=== PATIENT | female | born 1990 | race Caucasian/White ===

== ENCOUNTER 2019-04-24 10:55 | Emergency (ER) | payer SELFPAY ==
[~2019-04-24] VITALS: Ht 160 cm; Wt 63.6 kg
[2019-04-24 11:04] VITALS: BP 105/72; TEMP 97.6
[2019-04-24 12:29] VITALS: PULSE 76
== END 2019-04-24 12:29 | disposition home or self-care (01) ==
LOC: COL.ER 10:55
DX: O9A.213 Injury, poisoning and certain other consequences of external causes complicating pregnancy, third trimester (principal); T20.20XA Burn of second degree of head, face, and neck, unspecified site, initial encounter; T31.0 Burns involving less than 10% of body surface; Z3A.38 38 weeks gestation of pregnancy; X10.2XXA Contact with fats and cooking oils, initial encounter; Y93.G3 Activity, cooking and baking; Y92.000 Kitchen of unspecified non-institutional (private) residence as the place of occurrence of the external cause

== ENCOUNTER 2019-04-28 05:24 | Inpatient (IN) | payer SELFPAY ==
[2019-04-28] VITALS (12 sets, daily range): BP systolic 104–131; BP diastolic 59–84; PULSE 47–72; TEMP 98.4–98.5
[~2019-04-28] VITALS: Ht 160 cm; Wt 64.5 kg
--- NOTE | 2019-04-28 05:45 | NUR ---
Ambulatory to unit for labor assessment, accompanied by spouse. Orineted to room, monitor, plan of care.
--- NOTE | 2019-04-28 05:45 | NUR ---
BASILIA ROSS RN 8CM INTACT
--- NOTE | 2019-04-28 06:00 | NUR ---
DR MOYA HERE AROM 0614 CLER 10CM. PT DOES NOT WISH EPIDURAL AT THIS TIME. REPORT TO Mj MENDOZA RN
[2019-04-28 06:52] LABS: BASO % 0.3 % (0.0-2.0); GRAN # 7.5 (1.4-6.5); GRAN % 75.7 % (42.2-75.2); LYMPH # 1.5 (1.2-3.4); LYMPH % 15.6 % (20.0-51.0); MEAN CELL VOLUME 90 fl (80.0-100.0); MEAN CORPUSCULAR HEMOGLOBIN 30 pg (27.0-31.0); MEAN CORPUSCULAR HGB CONC 34 g/dl (33.0-37.0); MEAN PLATELET VOLUME 11.6 fl (7.4-10.4); MONO # 0.8 (0.1-0.6); MONO % 7.9 % (1.7-9.3); PLATELET COUNT 218 K/mm3 (130-400); RED BLOOD COUNT 3.98 M/mm3 (4.10-5.30); REDCELL DISTRIBUTION WIDTH-CV 13.1 % (11.5-14.5)
[2019-04-28 06:56] LABS: HEMATOCRIT 35.7 % (37.0-47.0)
[2019-04-29 07:30] VITALS: BP 99/57; PULSE 72; TEMP 97.9
== END 2019-04-29 11:00 | disposition home or self-care (01) | DRG 807 ==
LOC: LDRO 05:24 → LDR 05:35 → OB 09:00
PROVIDERS: ADMIT Obstetrics & Gynecology
PROC: 10E0XZZ Delivery of Products of Conception, External Approach (ICD-10-PCS; principal; 2019-04-28)
PROC: 0W8NXZZ Division of Female Perineum, External Approach (ICD-10-PCS; 2019-04-28)
DX: O80 Encounter for full-term uncomplicated delivery (principal); Z37.0 Single live birth; Z3A.39 39 weeks gestation of pregnancy
CPT/HCPCS: J2590; J2795; J7120

== ENCOUNTER → 2019-05-08 | Outpatient (CLI) | payer SELFPAY ==
--- NOTE | 2019-05-08 13:51 | NUR ---
Terrence Richardson into clinic with 10 day old Mali for weight check and evaluation. Mali was born on [birth year] with a weight of 7#3.5 oz (3276 gm). Terrence states that Mali is eating 8-9 times per day and is having 6 wet diapers and 5 yellow/seedy stools a day. Terrence states Mali lost approx 10% from her weight and feels she struggled with maintaining a good latch and obtaining good supply the first week. She started pumping after breastfeedign and feels her milk supply has increased and feels that overall, Mali is nursing better. On 05/04/19, Mali weighed 6# 13 oz at Pediatrics. Today's prefeed weight was noted as 7# 3.5 oz, a gain of 6.5 oz in 4 days. In clinic, Mali nursed bilaterally with a total gain of 74 gms (2.6 oz). LC noted good latch and positioning. POC: Continue to feed ad randy at least 8 times per day. Return next week for weight check if desired.
== END ==
LOC: LAC 12:47
DX: Z39.1 Encounter for care and examination of lactating mother (principal); Z71.89 Other specified counseling

== ENCOUNTER 2021-07-08 08:51 | Inpatient (IN) | payer SELFPAY ==
[~2021-07-08] VITALS: Ht 160 cm; Wt 67.7 kg
[2021-07-08] VITALS (11 sets, daily range): BP systolic 91–124; BP diastolic 53–87; PULSE 54–90; TEMP 97.9
--- NOTE | 2021-07-08 09:00 | NUR ---
Pt arrived on unit ambulatory from the clinic. Pt reports contractions every 10 minutes since 07/07, denies any leaking of fluid or vaginal bleeding and reports normal movement. EFM and toco monitors started. Vital signs WNL. SVE done per C.Case /+1. Dr. Juarez on the unit. Orders for labor admission received. Plan of care reviewed with pt.
[2021-07-08 09:22] LABS: BASO % 0.3 % (0.0-2.0); GRAN # 8.8 K/mm3 (1.4-6.5); GRAN % 79.1 % (42.2-75.2); HEMOGLOBIN 12.2 g/dl (12.5-16.0); LYMPH # 1.4 K/mm3 (1.2-3.4); LYMPH % 12.5 % (20.0-51.0); MEAN CELL VOLUME 86 fl (80.0-100.0); MEAN CORPUSCULAR HEMOGLOBIN 29 pg (27-31); MEAN CORPUSCULAR HGB CONC 34 g/dl (33.0-37.0); MONO # 0.8 K/mm3 (0.1-0.6); MONO % 7.6 % (1.7-9.3); PLATELET COUNT 315 K/mm3 (130-400); RED BLOOD COUNT 4.24 M/mm3 (4.10-5.30); REDCELL DISTRIBUTION WIDTH-CV 12.7 % (11.5-14.5)
[2021-07-08 09:25] LABS: HEMATOCRIT 36.4 % (37.0-47.0)
--- NOTE | 2021-07-08 09:30 | NUR ---
Dr. Juarez at the bedside. SVE done /+1 AROM with clear fluid.
--- NOTE | 2021-07-08 11:02 | NUR ---
1102- Pt reports feeling some pressure with contractions. SVE 10/100/+1 by this RN. 1104- Dr. Juarez called and update given. 1113- Dr. Juarez at the bedside. Pt set up for delivery. 1114- Pushing started. 1120- Pitocin started at 2ml/hr per Dr. Juarez' verbal order given at the bedside. 1134- of viable male . placed on mom's abdomen. Care of the given to nursery RN at the bedside. Cords clamped and cut. 1140- of placenta. Pitocin started at 333ml/hr per order and protocol. Fundus firm and lochia WNL.
--- NOTE | 2021-07-08 13:50 | NUR ---
Pt up to the bathroom with stand-by assist and without complications. Pt was able to void. Mary Ann-care done. Pt transferred to room 219 ambulatory. Oriented to room, bed and call light within reach. Plan of care reviewed with pt and at the bedside.
[2021-07-08] MEDS ORDERED: MOTRIN 800800 MG/TAB PO (15:21)
--- NOTE | 2021-07-08 15:57 | NUR ---
up to void 3rd yareli and Int site d/c
[2021-07-09 04:00] VITALS: BP 102/65; PULSE 67; TEMP 97.8
[2021-07-09 07:29] VITALS: BP 115/74; PULSE 69; TEMP 98.2
--- NOTE | 2021-07-09 09:11 | NUR ---
Initial visit; Parents thanked [employer] Supervisor for offering congratulations and God's blessings for the of their son. [employer] Supervisor thanked family for choosing [facility].
== END 2021-07-09 12:55 | disposition home or self-care (01) | DRG 807 ==
LOC: LDRO 08:51 → LDR 09:14 → OB 09:14
PROVIDERS: Obstetrics & Gynecology; ADMIT Obstetrics & Gynecology
PROC: 10E0XZZ Delivery of Products of Conception, External Approach (ICD-10-PCS; principal; 2021-07-08)
PROC: 0KQM0ZZ Repair Perineum Muscle, Open Approach (ICD-10-PCS; 2021-07-08)
DX: O70.1 Second degree perineal laceration during delivery (principal); Z37.0 Single live birth; O69.81X0 Labor and delivery complicated by cord around neck, without compression, not applicable or unspecified; Z3A.37 37 weeks gestation of pregnancy; Z86.16 Personal history of COVID-19
CPT/HCPCS: J2590; J7120

== ENCOUNTER → 2021-07-15 | Outpatient (CLI) | payer SELFPAY ==
[~2021-07-15] MED LIST: MOTRIN 800800 MG/TAB PO
--- NOTE | 2021-07-15 15:28 | NUR ---
Pt, Terrence Richardson, presents for outpatient consult with one week old baby boy, Ward Richardson. Pt states Ward is not nursing, sleeps at the breast and feels that after engorgement her milk supply went away. She also states concern about his jaundice, which was checked this morning and is considered WNL for his age. Ward was born on [birth year] and weighed 6#15.8oz (3170 gms). He is her third baby and both of the others had their own challenges with initially. She went on to breastfeed each for a year and had a good milk supply. Today Ward weighs 6#6.4oz (2904 gm), for an 8% weight loss. Current feeding plan is offering the breast, supplementing with EBM (1-1.5oz per feeding) and pumping (collecting 1-2oz per feeding). At this appointment Ward was difficult to get latched due to fussiness and disinterest. Eventually he gets latched but his effort was poor with pulling back to a shallow latch, and non-nutrative sucking. Breast compression was employeed which resulted in a few swallows. After initial feeding Ward had a weight gain of 14 gms. Pt agreed to try SNS with EBM. Nursing with SNS Ward was more consistent with nutrative suck and kept the breast in his mouth better. Gain after SNS was improved by 22 gm from breast and 24 gm from SNS. Ward was then fed the remainder of the EBM by bottle, for a total estimated intake of 70ml. Pt pumps and collects about 40ml. evaluates Ward's oral anatomy and notes he has an elevated anterior palate that is possibly turning the nipple up and not getting it drawn deeply into his mouth. Pt states he often feels like he is biting, but there is not a tether of the tongue at the tip, possible posterior restriction. Discussed power pumping, trying smaller breast pump flanges, and herbal supplements that my assist to increase milk supply. POC: Continue breast/supplement/pumping. Power pump and heral supplement as discussed. F/U: Pt to contact this LC end of this week or early next week. Follow up consult will be determined based on update. Questions invited and answered.
== END ==
LOC: LAC 12:42
DX: Z39.1 Encounter for care and examination of lactating mother (principal)